=== PATIENT | male | born 1995 | race Caucasian/White ===

== ENCOUNTER 2020-07-08 12:50 | Emergency (ER) | payer OTHER ==
[~2020-07-08] VITALS: Ht 182.9 cm; Wt 94.5 kg
[2020-07-08 12:50] VITALS: BP 126/73
--- NOTE | 2020-08-07 11:19 | REP ---
RIGHT SHOULDER SERIES CLINICAL: Pain, trauma. TECHNIQUE: Internal rotation, external rotation, and Y view of the right shoulder. FINDINGS: Acromioclavicular and glenohumeral joints appear intact and normal. No acute fracture or dislocation. Subacromial space is normal. Surrounding soft tissues are normal. IMPRESSION: Normal right shoulder. No acute fracture or dislocation. MTDD
--- NOTE | 2020-08-07 11:22 | REP ---
LEFT HAND SERIES FINDINGS: Soft tissue swelling primarily overlies the fifth metacarpal bone. No obvious acute fracture or dislocation is appreciated. No subcutaneous emphysema or foreign body. IMPRESSION: Soft tissue swelling. No obvious acute fracture or dislocation. If the patient remains symptomatic, consider revaluation in three to five days. VALERY
== END 2020-07-08 14:41 | disposition home or self-care (01) ==
LOC: M ED 12:50
DX: S50.311A Abrasion of right elbow, initial encounter (principal); S60.812A Abrasion of left wrist, initial encounter; S40.011A Contusion of right shoulder, initial encounter; S60.222A Contusion of left hand, initial encounter; S43.51XA Sprain of right acromioclavicular joint, initial encounter; V20.4XXA Motorcycle driver injured in collision with pedestrian or animal in traffic accident, initial encounter; Y92.410 Unspecified street and highway as the place of occurrence of the external cause; F17.220 Nicotine dependence, chewing tobacco, uncomplicated